=== PATIENT | male | born 1955 | race Caucasian/White ===

== ENCOUNTER 2018-09-27 08:40 | Observation (INO) | payer BC, MEDICARE ==
[2018-09-27] MEDS ORDERED: Diltiazem 25 MG/5 ML SDV IVPUSH STA (09:12)
[2018-09-27 09:24] LABS: CHLORIDE,CL 103 mEq/L (98-106); SODIUM,NA 138 mEq/L (136-145)
[2018-09-27] MEDS ORDERED: Lactated Ringers 1,000 ML IV SCH (09:45)
--- NOTE | 2018-09-27 10:11 | EDM.PDOC ---
ED HPI GENERAL MEDICAL PROBLEM - General Chief Complaint: Cardiovascular Problem Stated Complaint: atrial fib Time Seen by Provider: 09/27/18 08:50 Source of Information: Reports: Patient, Family () History Limitations: Reports: No Limitations - History of Present Illness INITIAL COMMENTS - FREE TEXT/NARRATIVE: States that somewhere between 1-3 this AM he suspected that he was in A.fib but noted that when he got out of bed at about 0500 that he was more SOB and tired than he had been. He denied any chest pain, edema or dizziness. "I just didn' t feel as good as I did yesterday." He has been up walking around. He states that his pain has been controlled on his current doses of meds. Onset: Today Location: Reports: Chest Associated Symptoms: Denies: Chest Pain, Cough, Nausea/Vomiting, Shortness of Breath - Related Data Allergies Allergy/AdvReac Type Severity Reaction Status Date / Time No Known Allergies Allergy Verified 09/27/18 08:47 Home Meds: Home Meds Lisinopril 5 mg PO DAILY 11/25/14 [History] Magnesium 250 mg PO DAILY 11/25/14 [History] Metoprolol Tartrate [Lopressor] 50 mg PO TID 11/25/14 [History] Pantoprazole Sodium 40 mg PO DAILY 11/25/14 [History] Apixaban [Eliquis] 5 mg PO BID 09/27/18 [History] HYDROmorphone [Dilaudid] 2 - 4 mg PO Q4H PRN 09/27/18 [History] Rosuvastatin [Crestor] 10 mg PO DAILY 09/27/18 [History] Social & Family History - Tobacco Use Smoking Status *Q: Former Smoker Used Tobacco, but Quit: Yes Month/Year Tobacco Last Used: 12/2002 - Caffeine Use Caffeine Use: Reports: Soda - Alcohol Use Days Per Week of Alcohol Use: 1 Number of Drinks Per Day: 2 Total Drinks Per Week: 2 - Recreational Drug Use Recreational Drug Use: No - Living Situation & Occupation Living situation: Reports: , with Spouse Occupation: Employed ED ROS GENERAL - Review of Systems Review Of Systems: See Below Constitutional: Reports: No Symptoms HEENT: Reports: No Symptoms Respiratory: Denies: Shortness of Breath, Cough Cardiovascular: Denies: Chest Pain, Edema GI/Abdominal: Reports: No Symptoms : Reports: No Symptoms Musculoskeletal: Reports: No Symptoms Skin: Reports: Wound (anterior chest) Neurological: Reports: No Symptoms ED EXAM, GENERAL - Physical Exam Exam: See Below Exam Limited By: No Limitations General Appearance: Alert, WD/WN, No Apparent Distress Ears: Normal External Exam, Normal Canal Throat/Mouth: Normal Inspection, Normal Oropharynx Head: Atraumatic, Normocephalic Neck: Normal Inspection, Supple, Non-Tender Respiratory/Chest: No Respiratory Distress, Lungs Clear, Normal Breath Sounds Cardiovascular: No Edema, Tachycardia, Irregularly Irregular GI/Abdominal: Normal Bowel Sounds, Soft, Non-Tender, No Organomegaly Back Exam: Normal Inspection, Full Range of Motion Extremities: Normal Inspection, Normal Range of Motion, Non-Tender, No Pedal Edema, Normal Capillary Refill Neurological: Alert, Oriented Skin Exam: Warm, Dry, Intact, Normal Color Course - Vital Signs Last Recorded V/S: Last Vital Signs Temp 98.2 F 09/27/18 11:50 Pulse 104 H 09/27/18 13:20 Resp 18 09/27/18 12:40 BP 109/57 L 09/27/18 13:20 Pulse Ox 98 09/27/18 13:20 - Orders/Labs/Meds Orders: Active Orders 24 hr Category Date Time Status CXR [Chest 2V] [CR] Stat Exams 09/27/18 08:55 Taken Diltiazem [Cardizem] 100 mg Med 09/27/18 10:30 Active Sodium Chloride 0.9% [Normal Saline] 100 ml IV TITRATE Lactated Ringers [Ringers, Lactated] 1,000 ml Med 09/27/18 09:45 Active IV ASDIRECTED Medication Orders Lactated Ringer's (Ringers, Lactated) 1,000 mls @ 75 mls/hr IV ASDIRECTED LAURY Last Admin: 09/27/18 09:39 Dose: 75 mls/hr Diltiazem HCl 100 mg/ Sodium (Chloride) 100 mls @ 5 mls/hr IV TITRATE LAURY; Protocol Last Titration: 09/27/18 12:26 Dose: 10 mg/hr, 10 mls/hr Admin: 09/27/18 11:14 Dose: 5 mg/hr, 5 mls/hr Labs: Laboratory Tests 09/27/18 09/27/18 09/27/18 Range/Units 09:02 09:02 09:02 WBC 9.7 (5.0-10.0) 10^3/uL RBC 3.98 L (4.50-6.00) 10^6/uL Hgb 11.6 L (14.0-18.0) g/dL Hct 35.6 L (40.0-54.0) % MCV 89.4 (82.0-94.0) fL MCH 29.1 (27.0-32.0) pg MCHC 32.6 L (33.0-38.0) g/dL RDW Coeff of Radha 14.0 (11.0-15.0) % Plt Count 199 (150-400) 10^3/uL Neut % (Auto) 71.9 (35-85) % Lymph % (Auto) 13.5 (10-55) % Milam % (Auto) 12.1 (0-16) % Eos % (Auto) 2.4 (0-5) % Baso % (Auto) 0.1 (0-3) % Neut # (Auto) 6.98 (1.80-7.00) 10^3/uL Lymph # (Auto) 1.31 (1.00-4.80) 10^3/uL Milam # (Auto) 1.17 H (0.00-0.80) 10^3/uL Eos # (Auto) 0.23 (0.00-0.45) 10^3/uL Baso # (Auto) 0.01 10^3/uL PT 10.5 (9.7-12.3) SEC INR 1.01 (0.92-1.18) Sodium 138 (136-145) mEq/L Potassium 4.5 (3.5-5.0) mEq/L Chloride 103 (98-106) mEq/L Carbon Dioxide 26 (21-32) mmol/L BUN 23 H (7-18) mg/dL Creatinine 1.1 (0.7-1.3) mg/dL Est Cr Clr Drug Dosing 82.20 mL/min Estimated GFR (MDRD) > 60 (>=60) mL/min Glucose 111 H (75-99) mg/dL Calcium 8.4 (8.4-10.1) mg/dL Lactate Dehydrogenase 305 H (100-190) U/L Creatine Kinase 41 (35-232) U/L Troponin I 0.193 H (0.00-0.06) ng/mL Meds: Medications Generic Name Dose Route Start Last Admin Trade Name Freq PRN Reason Stop Dose Admin Lactated Ringer's 1,000 mls @ 75 mls/hr 09/27/18 09:45 09/27/18 09:39 Ringers, Lactated IV 75 mls/hr ASDIRECTED LAURY Administration Diltiazem HCl 100 mg/ Sodium 100 mls @ 5 mls/hr 09/27/18 10:30 09/27/18 12:26 Chloride IV 10 mg/hr TITRATE LAURY 10 mls/hr Titration Protocol 5 MG/HR Discontinued Medications Generic Name Dose Route Start Last Admin Trade Name Freq PRN Reason Stop Dose Admin Diltiazem HCl 20 mg 09/27/18 09:12 09/27/18 09:22 Diltiazem IVPUSH 09/27/18 09:13 20 mg ONETIME STA Administration Diltiazem HCl 10 mg 09/27/18 10:27 09/27/18 10:42 Diltiazem IVPUSH 09/27/18 10:28 10 mg ONETIME ONE Administration Diltiazem HCl 5 mg 09/27/18 12:19 09/27/18 12:27 Diltiazem IVPUSH 09/27/18 12:20 5 mg ONETIME ONE Administration Sodium Chloride Confirm 09/27/18 11:16 09/27/18 12:37 Normal Saline Administered 09/27/18 11:17 75 mls/hr Dose Administration 1,000 mls @ as directed .ROUTE .[facility] ONE - Re-Assessments/Exams Free Text/Narrative Re-Assessment/Exam: 09/27/18 0920 Discussed labs, EKG with Dr. Pickering. Will give 20 mg Cardizem IV now. and repeat if heart rate does not come down. 1015 Heart rate had come down to the 110-130's. Hypotensive in the 90/ and asymptomatic with it. Heart rate has now returned to the 150's. [address] Morgan color separation photographer rn pediatric at [facility]. He recommended that we repeat the cardizem 10 mg and start drip at 5 mg and if he doesn't slow down and convert would need to be transferred to [place] later today. 09/27/18 Pt converted to SR 90's to 106. No chest pain. States that he feels better. Vitals stable. Discussed pt with Dr. Morgan and will start on Cardizem CD 120 daily po and stop the drip. Keep Metoprolol the same dose. If he converts back to afib then would need to start drip again and increase oral cardizem. 09/27/18 13:25 Will admit the pt observation and monitor overnight. Departure - Departure Time of Disposition: 13:26 Disposition: Refer to Observation Condition: Good Clinical Impression: Aortic valve replaced A-fib Qualifiers: Atrial fibrillation type: paroxysmal Qualified Code(s): I48.0 - Paroxysmal atrial fibrillation Referrals: Anastacio Pickering MD [Primary Care Provider] - Forms: ED Department Discharge - Problem List & Annotations (1) A-fib SNOMED Code(s): 02094977 Code(s): I48.91 - UNSPECIFIED ATRIAL FIBRILLATION Status: Acute Priority : High Current Visit: Yes Qualifiers: Atrial fibrillation type: paroxysmal Qualified Code(s): I48.0 - Paroxysmal atrial fibrillation (2) Aortic valve replaced SNOMED Code(s): 1265569384819, 59282885, 8320556537198 Code(s): Z95.2 - PRESENCE OF PROSTHETIC HEART VALVE Status: Acute Priority: Medium Current Visit: Yes - Problem List Review Problem List Initiated/Reviewed/Updated: Yes - My Orders Last 24 Hours: My Active Orders 09/27/18 08:55 CXR [Chest 2V] [CR] Stat 09/27/18 09:45 Lactated Ringers [Ringers, Lactated] 1,000 ml IV ASDIRECTED 09/27/18 10:30 Diltiazem [Cardizem] 100 mg Sodium Chloride 0.9% [Normal Saline] 100 ml IV TITRATE - Assessment/Plan Admission H&P: Please use this note as an admission H&P Last 24 Hours: My Active Orders 09/27/18 08:55 CXR [Chest 2V] [CR] Stat 09/27/18 09:45 Lactated Ringers [Ringers, Lactated] 1,000 ml IV ASDIRECTED 09/27/18 10:30 Diltiazem [Cardizem] 100 mg Sodium Chloride 0.9% [Normal Saline] 100 ml IV TITRATE
[2018-09-27] MEDS ORDERED: Diltiazem 25 MG/5 ML SDV IVPUSH ONE ×2 (10:27→12:19)
[2018-09-27] MEDS ORDERED: Diltiazem 100 MG in Sodium Chloride 0.9% 100 ML IV SCH (10:30)
[2018-09-27] MEDS ORDERED: Sodium Chloride 0.9% 1,000 ML ONE (11:16)
[2018-09-27] MEDS: Diltiazem 120 MG Cap.CD PO SCH (14:47)
[2018-09-27] MEDS: **PTOM** Metoprolol Tartrate 50 MG Tab PO SCH ×2 (14:48→19:56)
[2018-09-27] MEDS: HYDROMORPHONE 2 MG PO PRN (18:20)
[2018-09-28] MEDS: HYDROMORPHONE 2 MG PO PRN ×2 (00:05→04:43)
[2018-09-28 07:31] LABS: CHLORIDE,CL 104 mEq/L (98-106); SODIUM,NA 140 mEq/L (136-145)
[2018-09-28] MEDS: **PTOM** Metoprolol Tartrate 50 MG Tab PO SCH (07:59)
[2018-09-28] MEDS ORDERED: ROSUVASTATIN 10 MG PO SCH (08:00)
[2018-09-28] MEDS ORDERED: **PTOM** Pantoprazole 40 MG Tab.CR PO SCH (08:00)
[2018-09-28] MEDS ORDERED: **PTOM** Lisinopril 10 MG Tab PO SCH (08:00)
[2018-09-28] MEDS ORDERED: MAGNESIUM 250 MG PO SCH (08:00)
[2018-09-28 08:03] VITALS: BP 114/73
[2018-09-28] MEDS: Diltiazem 120 MG Cap.CD PO SCH (08:04)
--- NOTE | 2018-09-28 16:29 | PCM.DCSUM1 ---
Discharge Summary - Hospital Course Free Text/Narrative:: Patient presented to ER with concerns of irregular heart rhythm. Was concerned was in atrial fib between 1-3 am but started to not feel good around 5 am. Noted his rate was rapid. Irving weak. Is 1 week s/p aortic valve replacement. Was informed that atrial fib was a possibility. Irving more short of breath. No chest pain or dizziness but not feeling as good as he had been. Was found to be in atrial fib with RVR. Was started on a Cardizem drip which did help bring his rate down in to the 90s for a period of time. Sandra Davey did contact Dr. Morgan who suggested started on Cardizem CD but if rate not controlled with drip or didn't convert, would recommend transfer to [place]. Patient did convert to NSR about 5 hours after being in ER. Labs did note indeterminate troponin but felt related to recent surgery. Admitted to monitor telemetry and control rate as needed. Diagnosis: Stroke: No Modified Boyd Scale: No Symptoms at All Modified Debbie Scale Score: 0 - Discharge Data Discharge Date: 09/28/18 Discharge Disposition: Home, Self-Care 01 Condition: Good - Patient Summary/Data Complications: none Hospital Course: Patient is feeling good this am. Denies any pain or shortness of breath. Is up and ambulating in the halls and has tolerated well. Telemetry has remained NSR, rate in the 80-90s. Troponin is down this am. Appetite is good. Has tolerated oral Cardizem. Blood pressure did drop on the Cardizem drip yesterday but has been stable on oral Cardizem, 114/73 this am. Will discharge home on usual dose of metoprolol and Cardizem CD 120 mg daily. Follow up with Dr. Pickering next week, Dr. Morgan as planned later this month. - Patient Instructions Diet: Usual Diet as Tolerated Activity: As Tolerated - Discharge Plan *PRESCRIPTION DRUG MONITORING PROGRAM REVIEWED*: No *COPY OF PRESCRIPTION DRUG MONITORING REPORT IN PATIENT ERICK: No Prescriptions/Med Rec: Diltiazem [Cardizem CD] 120 mg PO DAILY #30 cap.cd Home Medications: Home Meds Lisinopril 5 mg PO DAILY 11/25/14 [History] Magnesium 250 mg PO DAILY 11/25/14 [History] Metoprolol Tartrate [Lopressor] 50 mg PO TID 11/25/14 [History] Pantoprazole Sodium 40 mg PO DAILY 11/25/14 [History] Apixaban [Eliquis] 5 mg PO BID 09/27/18 [History] HYDROmorphone [Dilaudid] 2 - 4 mg PO Q4H PRN 09/27/18 [History] Rosuvastatin [Crestor] 10 mg PO DAILY 09/27/18 [History] Diltiazem [Cardizem CD] 120 mg PO DAILY #30 cap.cd 09/28/18 [Rx] Forms: ED Department Discharge Referrals: Anastacio Pickering MD [Primary Care Provider] - (Hospital follow up one week) - Discharge Summary/Plan Comment DC Time >30 min.: No - General Info Date of Service: 09/28/18 Admission Dx/Problem (Free Text: Atrial Fib S/P Aortic Valve Replacement Functional Status: Reports: Pain Controlled, Tolerating Diet, Ambulating - Review of Systems General: Reports: Weakness HEENT: Reports: No Symptoms Pulmonary: Denies: Shortness of Breath, Cough Cardiovascular: Denies: Chest Pain, Edema, Lightheadedness Gastrointestinal: Denies: Abdominal Pain, Nausea, Vomiting Genitourinary: Reports: No Symptoms Musculoskeletal: Reports: No Symptoms Skin: Reports: No Symptoms Neurological: Reports: No Symptoms - Patient Data Vitals - Most Recent: Last Vital Signs Temp 97.5 F 09/28/18 08:00 Pulse 96 09/28/18 08:04 Resp 16 09/28/18 08:00 BP 114/73 09/28/18 08:04 Pulse Ox 98 09/28/18 08:00 Weight - Most Recent: 210 lb 14.4 oz I&O - Last 24 hours: Intake & Output 09/28/18 09/28/18 09/28/18 06:59 14:59 22:59 Intake Total 1200 Balance 1200 Lab Results - Last 24 hrs: Laboratory Results - last 24 hr 09/28/18 09/28/18 09/28/18 Range/Units 05:11 07:00 07:45 WBC 6.9 (5.0-10.0) 10^3/uL RBC 3.69 L (4.50-6.00) 10^6/uL Hgb 10.7 L (14.0-18.0) g/dL Hct 33.2 L (40.0-54.0) % MCV 90.0 (82.0-94.0) fL MCH 29.0 (27.0-32.0) pg MCHC 32.2 L (33.0-38.0) g/dL RDW Coeff of Radha 14.0 (11.0-15.0) % Plt Count 214 (150-400) 10^3/uL Neut % (Auto) 53.4 (35-85) % Lymph % (Auto) 27.7 (10-55) % [place] % (Auto) 12.7 (0-16) % Eos % (Auto) 6.1 H (0-5) % Baso % (Auto) 0.1 (0-3) % Neut # (Auto) 3.65 (1.80-7.00) 10^3/uL Lymph # (Auto) 1.90 (1.00-4.80) 10^3/uL [place] # (Auto) 0.87 H (0.00-0.80) 10^3/uL Eos # (Auto) 0.42 (0.00-0.45) 10^3/uL Baso # (Auto) 0.01 10^3/uL Sodium 140 (136-145) mEq/L Potassium 4.2 (3.5-5.0) mEq/L Chloride 104 (98-106) mEq/L Carbon Dioxide 26 (21-32) mmol/L BUN 21 H (7-18) mg/dL Creatinine 1.0 (0.7-1.3) mg/dL Est Cr Clr Drug Dosing 90.42 mL/min Estimated GFR (MDRD) > 60 (>=60) mL/min Glucose 95 (75-99) mg/dL Calcium 8.2 L (8.4-10.1) mg/dL Troponin I 0.167 H (0.00-0.06) ng/mL Med Orders - Current: Current Medications Discontinued Medications Apixaban (Eliquis) [address] [facility] Last Admin: 09/28/18 07:59 Dose: 5 mg Diltiazem HCl (Diltiazem) 20 mg IVPUSH ONETIME STA Stop: 09/27/18 09:13 Last Admin: 09/27/18 09:22 Dose: 20 mg Diltiazem HCl (Diltiazem) 10 mg IVPUSH ONETIME ONE Stop: 09/27/18 10:28 Last Admin: 09/27/18 10:42 Dose: 10 mg Diltiazem HCl (Diltiazem) 5 mg IVPUSH ONETIME ONE Stop: 09/27/18 12:20 Last Admin: 09/27/18 12:27 Dose: 5 mg Diltiazem HCl (Cardizem Cd) [address] [facility] Last Admin: 09/28/18 08:04 Dose: 120 mg Hydromorphone HCl (Dilaudid) 2 - 4 mg PO Q4H PRN PRN Reason: Pain Last Admin: 09/28/18 04:43 Dose: 4 mg Lactated Ringer's (Ringers, Lactated) 1,000 mls @ 75 mls/hr IV ASDIRECTED [facility] Last Admin: 09/27/18 09:39 Dose: 75 mls/hr Diltiazem HCl 100 mg/ Sodium (Chloride) 100 mls @ 5 mls/hr IV TITRATE LAURY; Protocol Last Titration: 09/27/18 12:26 Dose: 10 mg/hr, 10 mls/hr Sodium Chloride (Normal Saline) Confirm Administered Dose 1,000 mls @ as directed .ROUTE .[facility] ONE Stop: 09/27/18 11:17 Last Admin: 09/27/18 12:37 Dose: 75 mls/hr Lisinopril (Prinivil) [address] [facility] Last Admin: 09/28/18 08:00 Dose: 5 mg Metoprolol Tartrate (Lopressor) [address] [facility] Last Admin: 09/28/18 07:59 Dose: 50 mg Ptom Magnesium (250 Mg Tab) [address] [facility] Last Admin: 09/28/18 07:59 Dose: 250 mg Ptom Rosuvastatin [ Crestor] 10 Mg [address] [facility] Last Admin: 09/28/18 08:05 Dose: 10 mg Pantoprazole Sodium (Protonix) [address] [facility] Last Admin: 09/28/18 08:00 Dose: 40 mg - Exam General: Reports: Alert, Oriented HEENT: Reports: Mucous Membr. Moist/[place] Neck: Reports: Supple Lungs: Reports: Clear to Auscultation, Normal Respiratory Effort Cardiovascular: Reports: Regular Rate, Regular Rhythm, Other (chest wall is healing well, incision well approximated) GI/Abdominal Exam: Normal Bowel Sounds, Soft, Non-Tender Extremities: Normal Inspection, No Pedal Edema Skin: Reports: Warm, Dry Wound/Incisions: Reports: Healing Well Neurological: Reports: No New Focal Deficit
== END 2018-09-28 10:30 | disposition home or self-care (01) ==
LOC: CC.ED 08:40 → CC.MS 13:28 → UNDOADMOB 13:28 → CC.MS 13:29
PROVIDERS: ADMIT Physician Assistant Medical; ATTEND Family Medicine
DX: I48.0 Paroxysmal atrial fibrillation (principal); Z95.2 Presence of prosthetic heart valve; Z79.899 Other long term (current) drug therapy; Z87.891 Personal history of nicotine dependence
CPT/HCPCS: 36415; 71046; 80048; 82550; 83615; 84484; 85025; 85610; 93005; 96361; 96365; 96366; 96376; 99285-25; A9270-GY; J3490; J7030; J7050; J7120

== ENCOUNTER → 2019-03-29 | Day surgery (SDC) | payer BC ==
[~2019-03-29] MED LIST: Lactated Ringers 1,000 ML IV SCH; Propofol 200 MG/20 ML SDV IV ONE
[2019-03-29 12:39] VITALS: BP 122/86
--- NOTE | 2019-04-02 08:30 | OR ---
DATE OF OPERATION: 03/29/2019 PREOPERATIVE DIAGNOSIS: 1. CHRONIC GASTROESOPHAGEAL REFLUX DISEASE. 2. FAMILY HISTORY OF COLON CANCER WITH A HISTORY OF POLYPS. PROCEDURE: 1. DIAGNOSTIC EGD. 2. SURVEILLANCE COLONOSCOPY. ANESTHESIA: MAC via CIGAR HEAD PIERCER. COMPLICATIONS: None. SPECIMEN: None. FINDINGS: 1. Normal full-length EGD. 2. Normal colonoscopy. RECOMMENDATIONS: 1. Ongoing treatment for symptomatic GERD. 2. Routine colonoscopy every 5 years given family history of colon cancer. INDICATIONS: The patient was in for a routine physical. He has been having issues at times with chronic reflux and occasional sore throat in the morning. We elected to proceed with EGD. He is due for a colonoscopy given a history of polyp removals and a family history of colon cancer. DESCRIPTION OF PROCEDURE: The patient was prepped and draped, placed in the left lateral decubitus position. A lubricated Olympus gastroscope was inserted over a bit, advanced to cricopharyngeus area, and easily intubated in the esophagus. The esophageal lining was benign in its entire course. The Z-line was crisp and sharp at 45 cm. There was no hernia, no spontaneous reflux visualized. No signs of distal esophagitis, stricturing, ulceration, or Jeff's changes. The scope was advanced into the stomach through the pylorus into the second portion of the duodenum. This and the duodenal bulb were benign. The scope was brought back into the stomach and retroflexed. The upper fundus and cardia were unremarkable. Straightening showed normal rest of the fundus and antrum as well. Air was then suctioned from the stomach and the scope removed without complication. A lubricated Olympus colonoscope was then inserted and easily advanced to the cecum. Direct visualization of the ileocecal valve and appendiceal orifice was accomplished. The bowel prep was excellent. Upon withdrawal of the scope throughout the entire length of the colon, I could find no polyps, mass, ulceration, or bleeding sites. No vascular abnormalities or signs of colitis. There were no significant diverticula. Retroflexion of the scope in the rectal vault was benign as was the rectum itself. Air was then suctioned, scope removed without complication. NORMA/IVETTE /[id number]
== END ==
LOC: CC.SDS 10:29
PROVIDERS: ATTEND Family Medicine
DX: Z12.11 Encounter for screening for malignant neoplasm of colon (principal); K21.9 Gastro-esophageal reflux disease without esophagitis; I10 Essential (primary) hypertension; I48.0 Paroxysmal atrial fibrillation; E78.00 Pure hypercholesterolemia, unspecified; N40.0 Benign prostatic hyperplasia without lower urinary tract symptoms; Z95.2 Presence of prosthetic heart valve; Z86.010 Personal history of colon polyps; Z87.891 Personal history of nicotine dependence; Z80.0 Family history of malignant neoplasm of digestive organs; Z79.01 Long term (current) use of anticoagulants; Z79.899 Other long term (current) drug therapy
CPT/HCPCS: 43235; G0121; J2704; J7120

== ENCOUNTER 2019-09-12 10:34 | Emergency (ER) | payer BC ==
[2019-09-12 11:12] LABS: CHLORIDE,CL 105 mEq/L (98-106); SODIUM,NA 140 mEq/L (136-145)
[2019-09-12 11:13] VITALS: BP 147/83; PULSE 67
--- NOTE | 2019-09-12 11:26 | EDM.PDOC ---
ED HPI GENERAL MEDICAL PROBLEM - General Chief Complaint: Cardiovascular Problem Stated Complaint: palpitations, vertigo Time Seen by Provider: 09/12/19 10:54 Source of Information: Reports: Patient History Limitations: Reports: No Limitations - History of Present Illness INITIAL COMMENTS - FREE TEXT/NARRATIVE: Has noted increase in irregular heart beats. He doesn't feel that he has been back in afib as he has had this previously. His hooked him up to a rhythm strip in [facility] and was in NSR with PVC every 3rd beat. He does feel dizzy at times. He denies any chest pain or edema. He Has been drinking some coke more than normal. No extra salt. Does have appt with Dr. Morgan in 2 weeks for possible monitor he thinks. Onset: Gradual - Related Data Allergies Allergy/AdvReac Type Severity Reaction Status Date / Time No Known Allergies Allergy Verified 09/12/19 10:40 Home Meds: Home Meds Lisinopril 10 mg PO DAILY 11/25/14 [History] Magnesium 250 mg PO DAILY 11/25/14 [History] Metoprolol Tartrate [Lopressor] 50 mg PO BID 11/25/14 [History] Pantoprazole Sodium 40 mg PO DAILY 11/25/14 [History] Apixaban [Eliquis] 5 mg PO BID 09/27/18 [History] Rosuvastatin [Crestor] 10 mg PO DAILY 09/27/18 [History] Diltiazem [Cardizem CD] 120 mg PO DAILY 10/16/18 [History] Past Medical History HEENT History: Reports: Cataract, Impaired Vision Cardiovascular History: Reports: Afib, Heart Valve Replacement, High Cholesterol , Hypertension Other Cardiovascular History: knew he had a leaky valve for some time; saw cardiology, surgery recommended; he had more fatigue and weakness recently. came to ER on 09-27-18 didnt feel well, had Afib. Since AVR: chest incision looks good, has some incisional discomfort, no orthopedica complaints, SOB is improving, appetite less, denies any palpitations, sometimes he is dizzy upon standing too quickly--checks his BP at home around 119/68--told to get up slowly , some insomnia due to positional discomfort at night, lost about 6-8 pounds with surgery. Saw Dr. Pickering for followup appt on 10-02-18. says he has been on cholesterol pills and BP pills before AVR. Angiogram insertion site right wrist healing. 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 Denies: Fever, Chills HEENT: Reports: No Symptoms Respiratory: Denies: Shortness of Breath Cardiovascular: Denies: Chest Pain Endocrine: Reports: Fatigue GI/Abdominal: Reports: No Symptoms Skin: Reports: No Symptoms Neurological: Reports: Dizziness ED EXAM, GENERAL - Physical Exam Exam: See Below Exam Limited By: No Limitations General Appearance: Alert, WD/WN, Mild Distress. No: Anxious Ears: Normal External Exam, Normal Canal, Normal TMs Nose: Normal Inspection Throat/Mouth: Normal Inspection, Normal Oropharynx Head: Atraumatic Neck: Normal Inspection, Supple, Non-Tender Respiratory/Chest: No Respiratory Distress, Lungs Clear, Normal Breath Sounds Cardiovascular: Other (NSR with occasional PVC noted on the monitor.) GI/Abdominal: Normal Bowel Sounds, Soft, Non-Tender Neurological: Alert, Oriented Skin Exam: Warm, Dry, Intact Course - Vital Signs Last Recorded V/S: Last Vital Signs Temp 96.4 F L 09/12/19 10:36 Pulse 67 09/12/19 11:13 Resp 18 09/12/19 11:13 BP 147/83 H 09/12/19 11:13 Pulse Ox 98 09/12/19 11:13 - Orders/Labs/Meds Orders: Active Orders 24 hr Category Date Time Status Chest 2V [CR] Stat Exams 09/12/19 10:15 Taken Labs: Laboratory Tests 09/12/19 09/12/19 09/12/19 Range/Units 10:15 10:15 10:15 WBC 8.0 (5.0-10.0) 10^3/uL RBC 5.45 (4.50-6.00) 10^6/uL Hgb 15.9 (14.0-18.0) g/dL Hct 47.5 (40.0-54.0) % MCV 87.2 (82.0-94.0) fL MCH 29.2 (27.0-32.0) pg MCHC 33.5 (33.0-38.0) g/dL RDW Coeff of Radha 14.0 (11.0-15.0) % Plt Count 182 (150-400) 10^3/uL Neut % (Auto) 62.3 (35-85) % Lymph % (Auto) 26.9 (10-55) % Trigg % (Auto) 9.2 (0-16) % Eos % (Auto) 1.5 (0-5) % Baso % (Auto) 0.1 (0-3) % Neut # (Auto) 4.95 (1.80-7.00) 10^3/uL Lymph # (Auto) 2.14 (1.00-4.80) 10^3/uL Trigg # (Auto) 0.73 (0.00-0.80) 10^3/uL Eos # (Auto) 0.12 (0.00-0.45) 10^3/uL Baso # (Auto) 0.01 10^3/uL PT 10.6 (9.7-12.3) SEC INR 1.03 (0.92-1.18) Sodium 140 (136-145) mEq/L Potassium 4.1 (3.5-5.0) mEq/L Chloride 105 (98-106) mEq/L Carbon Dioxide 29 (21-32) mmol/L BUN 26 H (7-18) mg/dL Creatinine 1.2 (0.7-1.3) mg/dL Est Cr Clr Drug Dosing 74.34 mL/min Estimated GFR (MDRD) > 60 (>=60) mL/min Glucose 110 H (75-99) mg/dL Calcium 8.7 (8.4-10.1) mg/dL Total Bilirubin 0.5 (0.0-1.0) mg/dL AST 16 (15-37) U/L ALT 26 (12-78) U/L Alkaline Phosphatase 68 (46-116) U/L Lactate Dehydrogenase 210 H (100-190) U/L Creatine Kinase 131 (35-232) U/L Troponin I < 0.017 (0.00-0.06) ng/mL C-Reactive Protein < 0.2 L (0.2-0.8) mg/dL Total Protein 7.3 (6.4-8.2) g/dL Albumin 3.7 (3.4-5.0) g/dL Lipase 151 (73-393) U/L - Re-Assessments/Exams Free Text/Narrative Re-Assessment/Exam: 09/12/19 1100- In to discuss his EKG, labs and rhythm. He is basically in NSR and occasionally with have PVC with single or in trigemeny for short runs. He states that he can feel the PVC if he has more than one. NO chest pain or SOB with it. All labs are normal at this time and rate is controlled as well as BP so no meds will be adjusted. NOt in AFIB so no adjustments need to be made. Departure - Departure Time of Disposition: 11:24 Disposition: Home, Self-Care 01 Condition: Good Clinical Impression: Palpitations, PVC (premature ventricular contraction) Instructions: Premature Ventricular Contraction, Palpitations, [id number] Referrals: Anastacio Pickering MD [Primary Care Provider] - Forms: ED Department Discharge Additional Instructions: Continue on same meds as scheduled Follow up with Dr. Morgan as scheduled If irregular heart rate returns and is continuous then needs to come back to the ER. Sepsis Event Note - Evaluation Sepsis Screening Result: No Definite Risk - Focused Exam Vital Signs: Vital Signs Temp Pulse Resp BP Pulse Ox 09/12/19 11:13 67 18 147/83 H 98 09/12/19 11:00 78 18 167/82 H 100 09/12/19 10:49 66 18 161/93 H 99 09/12/19 10:36 96.4 F L 67 18 154/78 H 100 Date Exam was Performed: 09/12/19 Time Exam was Performed: 15:35 - Problem List & Annotations (1) Palpitations SNOMED Code(s): 79705434 Code(s): R00.2 - PALPITATIONS Status: Acute Priority: High (2) PVC (premature ventricular contraction) SNOMED Code(s): 64938115 Code(s): I49.3 - VENTRICULAR PREMATURE DEPOLARIZATION Status: Acute Priority: Medium - Problem List Review Problem List Initiated/Reviewed/Updated: Yes - My Orders Last 24 Hours: My Active Orders 09/12/19 10:15 Chest 2V [CR] Stat - Assessment/Plan Last 24 Hours: My Active Orders 09/12/19 10:15 Chest 2V [CR] Stat
== END 2019-09-12 11:30 | disposition home or self-care (01) ==
LOC: CC.ED 10:34
DX: I49.3 Ventricular premature depolarization (principal); I48.91 Unspecified atrial fibrillation; I10 Essential (primary) hypertension; E78.00 Pure hypercholesterolemia, unspecified; Z87.891 Personal history of nicotine dependence; Z79.899 Other long term (current) drug therapy; Z79.01 Long term (current) use of anticoagulants
CPT/HCPCS: 36415; 71046; 80053; 82550; 83615; 83690; 84484; 85025; 85610; 86140; 93005; 99285-25

== ENCOUNTER 2020-01-12 09:41 | Emergency (ER) | payer BC ==
[2020-01-12] MEDS ORDERED: Diphtheria,Pertussis(Acell),Tetanus Vaccine 0.5 ML Syringe IM ONE (09:55)
[2020-01-12] MEDS ORDERED: ceFAZolin 1 GM Vial IVPUSH ONE (09:55)
[2020-01-12] MEDS ORDERED: Bupivacaine 0.5% 10 ML SDV INJECT ONE (09:55)
--- NOTE | 2020-01-12 09:55 | EDM.PDOC ---
ED HPI GENERAL MEDICAL PROBLEM - General Chief Complaint: General Stated Complaint: Laceration to thumb Time Seen by Provider: 01/12/20 09:53 Source of Information: Reports: Patient - History of Present Illness INITIAL COMMENTS - FREE TEXT/NARRATIVE: This patient was using a rotary saw when he accidentally cut off his right thumb. Patient reports pain at the site. Onset: Today Onset Date: 01/12/20 Location: Reports: Upper Extremity, Right Severity: Severe Improves with: Reports: None Worsens with: Reports: None Associated Symptoms: Reports: No Other Symptoms Right Finger-Thumb Pain Score (Numeric/FACES): 8 - Related Data Allergies Allergy/AdvReac Type Severity Reaction Status Date / Time No Known Allergies Allergy Verified 01/12/20 09:41 Home Meds: Home Meds Lisinopril 10 mg PO DAILY 11/25/14 [History] Magnesium 250 mg PO DAILY 11/25/14 [History] Metoprolol Tartrate [Lopressor] 50 mg PO BID 11/25/14 [History] Pantoprazole Sodium 40 mg PO DAILY 11/25/14 [History] Apixaban [Eliquis] 5 mg PO BID 09/27/18 [History] Rosuvastatin [Crestor] 10 mg PO DAILY 09/27/18 [History] Diltiazem [Cardizem CD] 120 mg PO DAILY 10/16/18 [History] Past Medical History HEENT History: Reports: Cataract, Impaired Vision Cardiovascular History: Reports: Afib, Heart Valve Replacement, High Cholesterol , Hypertension Other Cardiovascular History: knew he had a leaky valve for some time; saw cardiology, surgery recommended; he had more fatigue and weakness recently. came to ER on 09-27-18 didnt feel well, had Afib. Since AVR: chest incision looks good, has some incisional discomfort, no orthopedica complaints, SOB is improving, appetite less, denies any palpitations, sometimes he is dizzy upon standing too quickly--checks his BP at home around 119/68--told to get up slowly , some insomnia due to positional discomfort at night, lost about 6-8 pounds with surgery. Saw Dr. Pickering for followup appt on 10-02-18. says he has been on cholesterol pills and BP pills before AVR. Angiogram insertion site right wrist healing. 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 Denies: Chest Pain, Palpitations, Syncope GI/Abdominal: Reports: No Symptoms Musculoskeletal: Reports: No Symptoms Skin: Reports: Other (right thumb amputation) Neurological: Reports: Numbness (at the site of missing right thumb per patient) . Denies: Confusion, Headache, Syncope Psychiatric: Reports: No Symptoms Hematologic/Lymphatic: Reports: No Symptoms Immunologic: Reports: No Symptoms ED EXAM, GENERAL - Physical Exam Exam: See Below Exam Limited By: No Limitations General Appearance: Alert, WD/WN, No Apparent Distress Respiratory/Chest: No Respiratory Distress, Lungs Clear, Normal Breath Sounds, No Accessory Muscle Use Cardiovascular: Normal Peripheral Pulses, No Edema, No Gallop, No JVD, No Murmur , No Rub, Bradycardia (52) Peripheral Pulses: 2+: Radial (L), Radial (R) Extremities: Other (Right thumb complete amputation at proximal 1/3 phalanx. Bone exposure. ) Neurological: Alert, Oriented Psychiatric: Anxious Skin Exam: Warm, Dry, Normal Color, No Rash, Wound/Incision ED GENERAL MEDICAL PROCEDURES - Additional/Other Procedure(s) Other (Free Text) Procedure(s): Right 1st digit, digital block, using Marcain 0.5% 1.5ml applied to each webspace after applying betadine. No complications. Then, the area was cleaned with hibiclens and irrgated with NS 100ml. Telfa, 4x4, coban, phuong wraps applied to site. Bleeding controlled. Course - Vital Signs Last Recorded V/S: Last Vital Signs Temp 96.8 F L 01/12/20 10:09 Pulse 50 L 01/12/20 11:36 Resp 16 01/12/20 11:36 BP 138/73 01/12/20 11:36 Pulse Ox 100 01/12/20 11:36 - Orders/Labs/Meds Orders: Active Orders 24 hr Category Date Time Status Vaccines to be Administered [RC] PER UNIT ROUTINE Care 01/12/20 09:56 Active Hand Comp Min 3V Rt [CR] Stat Exams 01/12/20 09:59 Taken Meds: Medications Discontinued Medications Generic Name Dose Route Start Last Admin Trade Name Angie PRN Reason Stop Dose Admin Bupivacaine HCl 10 ml 01/12/20 09:55 01/12/20 10:06 Sensorcaine-Mpf 0.5% INJECT 01/12/20 09:56 10 ml ONETIME ONE Administration Cefazolin Sodium 1 gm 01/12/20 09:55 01/12/20 10:06 Ancef IVPUSH 01/12/20 09:56 1 gm ONETIME ONE Administration Diphtheria/Tetanus/Acell Pertussis 0.5 ml 01/12/20 09:55 01/12/20 10:04 Adacel IM 01/12/20 09:56 0.5 ml .ONCE ONE Administration Sodium Chloride 1,000 mls @ 1,000 mls/hr 01/12/20 10:08 01/12/20 10:12 Normal Saline IV 01/12/20 11:07 1,000 mls/hr .BOLUS ONE Administration Morphine Sulfate 4 mg 01/12/20 10:53 01/12/20 10:57 Morphine IVPUSH 01/12/20 10:54 4 mg ONETIME ONE Administration Ondansetron HCl 4 mg 01/12/20 10:53 01/12/20 10:56 Zofran IVPUSH 01/12/20 10:54 4 mg NOW STA Administration - Radiology Interpretation Free Text/Narrative:: Right hand: 1st digit proximal phalaynx fracture with open amputation. - Re-Assessments/Exams Free Text/Narrative Re-Assessment/Exam: 01/12/20 10:11 Attempted to transfer to [facility], Surgeon is floor installation mechanic, but they do not do amputations. I then discussed with the patient if he would like nub or someone to attempt to reattach. He said he would be okay with a nub. I then spoke to [facility] more in depth about the visualization of the amputation location. They are checking with the surgeon to see if he can nub this, they will call me back. 01/12/20 10:39 Called [facility] back at [facility], surgeon in the OR, they are working on transfer/accepting. They will call me back. 01/12/20 10:54 Patient reports having pain at the site that is missing. 01/12/20 11:07 [facility] has called back, they have accepted the transfer. Orthopedic/hand and plastics will perform the surgery. I spoke to Dr. Perkins ER physician at [facility], he has accepted the patient. Departure - Departure Time of Disposition: 11:14 Disposition: DC/Tfer to 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 Qualifiers: Encounter type: initial encounter Qualified Code(s): S68.511A - Complete traumatic transphalangeal amputation of right thumb, initial encounter - Discharge Information *PRESCRIPTION DRUG MONITORING PROGRAM REVIEWED*: Not Applicable *COPY OF PRESCRIPTION DRUG MONITORING REPORT IN PATIENT ERICK: Not Applicable Referrals: PCP,None [Primary Care Provider] - Forms: ED Department Discharge Sepsis Event Note (ED) - Focused Exam Vital Signs: Vital Signs Temp Pulse Resp BP Pulse Ox 01/12/20 11:36 50 L 16 138/73 100 01/12/20 10:09 96.8 F L 50 L 16 133/73 100 - My Orders Last 24 Hours: My Active Orders 01/12/20 09:56 Vaccines to be Administered [RC] PER UNIT ROUTINE 01/12/20 09:59 Hand Comp Min 3V Rt [CR] Stat - Assessment/Plan Last 24 Hours: My Active Orders 01/12/20 09:56 Vaccines to be Administered [RC] PER UNIT ROUTINE 01/12/20 09:59 Hand Comp Min 3V Rt [CR] Stat Plan: PLEASE SEE RN NOTE FOR PFSH This patient is being transferred. Risk vs benefits explained to the patient. The risks of transfer are mvc, worsening of condition, uncontrolled bleeding, loss of finger, . The risks of staying in [place] is loss of limb, infection, . The benefits of transfer are hand surgeon, higher level of care. The benefits of staying in [place] is close to home.
[2020-01-12] MEDS ORDERED: Sodium Chloride 0.9% 1,000 ML IV ONE (10:08)
[2020-01-12 10:15] VITALS: PULSE 50
[2020-01-12] MEDS ORDERED: Ondansetron 4 MG/2 ML SDV IVPUSH STA (10:53)
[2020-01-12 11:37] VITALS: BP 138/73
[2020-01-12] MEDS ORDERED: Morphine 2 MG/ML Syringe ONE (11:47)
[2020-01-12] MEDS ORDERED: Morphine 2 MG/ML Syringe IVPUSH ONE ×2 (12:05→12:08)
== END 2020-01-12 12:18 ==
LOC: CC.ED 09:41
DX: S68.511A Complete traumatic transphalangeal amputation of right thumb, initial encounter (principal); I10 Essential (primary) hypertension; I48.91 Unspecified atrial fibrillation; E78.00 Pure hypercholesterolemia, unspecified; M19.90 Unspecified osteoarthritis, unspecified site; Z23 Encounter for immunization; Z79.899 Other long term (current) drug therapy; Z79.01 Long term (current) use of anticoagulants; W27.0XXA Contact with workbench tool, initial encounter
CPT/HCPCS: 64450; 73130; 90471; 90715; 96361; 96374; 96375; 96376; 99284; J0690; J2270; J2405; J3490; J7030

== ENCOUNTER 2022-11-11 04:10 | Emergency (ER) | payer MEDICARE, OTHER ==
[2022-11-11 04:38] VITALS: BP 146/63; PULSE 43
[2022-11-11] MEDS ORDERED: Iopamidol 755 Mg/ML 100 ML Bottle IVPUSH ONE (05:31)
== END 2022-11-11 06:54 | disposition home or self-care (01) ==
LOC: CC.ED 04:10
DX: R10.11 Right upper quadrant pain (principal); I48.91 Unspecified atrial fibrillation; I10 Essential (primary) hypertension; E78.00 Pure hypercholesterolemia, unspecified; Z79.01 Long term (current) use of anticoagulants; Z79.82 Long term (current) use of aspirin; Z79.899 Other long term (current) drug therapy
CPT/HCPCS: 36415; 74177; 80053; 81001; 83690; 83735; 85025; 99284; Q9967

== ENCOUNTER 2024-05-03 08:00 | Day surgery (SDC) | payer MEDICARE, OTHER ==
[2024-05-03 08:16] LABS: INR 1.01 (0.92-1.18); PROTHROMBIN TIME 10.6 SEC (9.3-11.3)
[2024-05-03] MEDS: Lactated Ringers 1,000 ML IV SCH (08:20)
[2024-05-03] MEDS ORDERED: Ketamine 200 MG/20 ML MDV ONE (09:00)
[2024-05-03] MEDS ORDERED: Propofol 200 MG/20 ML SDV ONE (09:00)
[2024-05-03] MEDS ORDERED: fentaNYL 50 MCG/ML SDV ONE (09:00)
[2024-05-03 10:18] VITALS: BP 131/74; PULSE 61
== END 2024-05-03 10:25 | disposition home or self-care (01) ==
LOC: CC.SDS 08:00
PROVIDERS: ATTEND Family Medicine
DX: Z12.11 Encounter for screening for malignant neoplasm of colon (principal); K57.30 Diverticulosis of large intestine without perforation or abscess without bleeding; I48.0 Paroxysmal atrial fibrillation; I10 Essential (primary) hypertension; G47.33 Obstructive sleep apnea (adult) (pediatric); E78.00 Pure hypercholesterolemia, unspecified; E03.9 Hypothyroidism, unspecified; Z80.0 Family history of malignant neoplasm of digestive organs; Z79.82 Long term (current) use of aspirin; Z79.890 Hormone replacement therapy; Z79.899 Other long term (current) drug therapy; Z87.891 Personal history of nicotine dependence
CPT/HCPCS: 36415; 85610; G0105; J7120; J2704; J3010; J3490